=== PATIENT | female | born 1990 | race Caucasian/White ===

== ENCOUNTER 2016-10-20 11:00 | Outpatient (RCR) ==
--- NOTE | 2016-10-13 13:47 | RS.OPPTEV2 ---
Date of Note: 10/13/16 Visit #: 1 Date of Evaluation: 10/13/16 Surgery Performed?: Yes Procedure Performed: ACL reconstruction left knee with allograft Date of Procedure: 10/08/16 Treatment Diagnosis: Left knee stiffness, left knee pain, joint effusion, s/p ACL reconstruction History of Condition/Mechanism of Injury:: Patient reports injuring her left knee in June while playing volleyball. States she injured the ACL and MCL. Prior Level of Function.....Patient was independent with: ADL's, Self Care, Work /Vocation, Caregiving, Ambulation/Mobility, Community Integration/Access Functional Limitations: Sleep, Self Care, ADL's, Reaching, Pushing, Pulling, Lifting, Carrying, Sitting, Standing, Bending, Squatting, Ambulation, Community Access/Integration Current Subjective/complaints:: Patient reports not having a lot of pain. States she took tylenol last night, but that was mainly for a headache. She was on crutches for the first two days after surgery. She wears the locked knee brace continuously. She has been icing and elevating the Left LE. Reports sensation has fully returned from nerve block. 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 She is currently staying with her mother. States she has 15 steps to get to her apartment. Treatment Side (optional): Left Pain Assessment - Pain Description Pain Location: left knee pain Current Pain Intensity: 0/10 Functional Outcome Measure LE Functional Scale: 25 (25/80=68.75% impairment) - G Codes & Severity Modifier G Codes & Modifier: NA Source of G Code score: NA Observation - Observation Inspection: Patient presents with a locked knee brace in place to the left knee. Upon removal of the brace and IDALIA wrap, patient demostrates a couple of small incisions approximated with dermabond and a few incisions covered with steri-strips. Demonstrates slight bruising to the anterior aspect of the knee. Girth Measurement Lower: superior patella: left 36.5 cm, right 36.5 cm. mid patella: left 36 cm, right 35.5 cm. inferior patella: left 33 cm, right 32 cm. malleoli: left 22 cm, right 21 cm Gait - Gait Pattern Gait Comments: Patient ambulates without an assistive device with locked knee brace on the left LE. Demonstrates decreased stance on the left LE. - Left Knee ROM Left Knee Extension: -1 degree from full extension Left Knee Flexion: 82 (degrees AAROM) Knee ROM Limitations: Soft Tissue Tightness - Right Knee ROM Right Knee Extension: full extension Right Knee Flexion: 135 (degrees AROM) - Left Knee Strength Left Knee Extension: 4 Good Left Knee Flexion: 4 Good - Right Knee Strength Right Knee Extension: 5 Normal Right Knee Flexion: 5 Normal Sensation - Sensation Right Lower Extremity: Intact/Normal Left Lower Extremity: Intact/Normal Comments: Reports sensation intact throughout bilateral LE's. - Heat/Cryotherapy Treatment: Cryotherapy (X 10 mins following evaluation.) Interventions - Exercise/Activities/Manual Therapy Exercises/Activities: Patient assisted with left knee AROM below 90 degrees. Patient performed quad sets and SLR's with light assistance (without brace). Patient instructed in HEP of patella mobilization, quad sets, assisted SLR, and ankle pumps. Advised to continue icing the knee and to avoid twisting with the foot planted. Manual Therapy: NA - Charges Total Direct Minutes: 45 mins Total Treatment Time: 45 mins Procedures billed for this date of service:: EVAL Low complexity Assessment Assessment: Patient presents to therapy 5 days s/p left ACL reconstruction. She demonstrates limited AROM and muscle strength since surgery. Demonstrates .5 to 1 cm of swelling in the left knee compared to the right. She demonstrates good potential to return to her previous level of function with skilled therapy following Dr. Salmon's protocol. Patient Education: Education of diagnosis, Body/Joint mechanics, Home Exercise Program, Home Safety, Activity Modification, Education of Plan of Care Rehab Potential: Good Short Term Goals Goal #1: Left quad strength 4+/5. Goal to be met by: 10/27/16 Goal #2: Left knee AROM 0 to 90 degrees. Goal to be met by: 10/27/16 Goal #3: Pt independent and compliant with HEP. Goal to be met by: 10/27/16 Care Transitions Manager Goals Goal #1: Pt knows HEP and to continue HEP. Goal to be met by: 12/12/16 Goal #2: LE functional score improved to 60/80. Goal to be met by: 12/12/16 Goal #3: Pt able to perform all home and work activities without limitation. Goal to be met by: 10/21/17 Goal #4: Pt to amb. community distances & stairs w/o a gait deviation or difficulty. Goal to be met by: 12/12/16 Plan - Treatment to be Provided Procedures: Therapeutic Exercises, Therapeutic Activity, Patient Education Modalities: Electrical Stimulation, Cryotherapy - Treatment Plan Frequency: 3 X week Duration: 8 weeks ORDER # VISITS AND/OR THROUGH DATE: 12/12/16 - Treatment Code (1) Stiffness of left knee Comments: M25.662 (2) Knee effusion Qualifiers: Laterality: left Qualified Description: Effusion of left knee Qualifier Code(s): (M25.462) Effusion, left knee (3) S/P ACL reconstruction Comments: Z98.890
--- NOTE | 2016-10-14 14:46 | RS.OPPTDN ---
Subjective Date of Note: 10/14/16 Visit #: 2 Date of Evaluation: 10/13/16 Treatment Diagnosis: Left knee stiffness, left knee pain, joint effusion, s/p ACL reconstruction Current Subjective/complaints:: Patient says she feels she is doing quite well. She says she is performing HEP, using ice, and elevating. She is only taking Tylenol prn and last night is the last time she had taken it. (Appointment time 11:00). She c/o TAPIA at nighttime. She says she has a follow up on WednesdayOctober 16. Pain Assessment - Pain Description Pain Location: left knee pain Current Pain Intensity: 0/10 - Treatment Modality: Electrical Stim Unattended Parameters/Method Applied: 4 small pads hivolt crossed @ 125 pk volts to L knee following therex x 20 mins Patient Position: Supine - Heat/Cryotherapy Treatment: Cryotherapy Interventions - Exercise/Activities/Manual Therapy Exercises/Activities: Patient assisted with left knee AROM below 90 degrees. Patient performed quad sets and SLR's with light assistance (without brace), hip abd/add, heel slides to ~80 degrees. Ankle pumps in elevated position. Encouraged continued HEP and edema control/brace wear. Instructed in standing hip/knee all 4 directions with brace. Advised to continue icing the knee and to avoid twisting with the foot planted. Total minutes of Exercise: 20 Manual Therapy: NA - Charges Total Direct Minutes: 20 Total Treatment Time: 40 Procedures billed for this date of service:: cp, estim (un), ex Assessment: Patient demo independent amb with knee brace locked at 0 extension and IDALIA wrap. She is very consicentious of precautions and performing HEP/ cryotherapy at home. Instructed in proper stair sequence per mother's request as Loni wants to begin staying at her home which has 15 steps. Discouraged her from going home too soon to prevent fall. She maintained little to no pain with no pain meds taken prior to therapy session. She maintains light bruising and only slight swelling at the L knee joint. 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 Patient Education: Education of diagnosis, Body/Joint mechanics, Home Exercise Program, Home Safety, Activity Modification, Education of Plan of Care Short Term Goals Goal #1: Left quad strength 4+/5. Goal to be met by: 10/27/16 Goal #2: Left knee AROM 0 to 90 degrees. Goal to be met by: 10/27/16 Goal #3: Pt independent and compliant with HEP. Goal to be met by: 10/27/16 Prison Goals Goal #1: Pt knows HEP and to continue HEP. Goal to be met by: 12/12/16 Goal #2: LE functional score improved to 60/80. Goal to be met by: 12/12/16 Goal #3: Pt able to perform all home and work activities without limitation. Goal to be met by: 12/12/16 Goal #4: Pt to amb. community distances & stairs w/o a gait deviation or difficulty. Goal to be met by: 12/12/16 Plan PLAN OF CARE EXPIRES ON:: 12/12/16 ORDER # VISITS AND/OR THROUGH DATE: 12/12/16 PLAN: Progress Exercises (According to protocol)
--- NOTE | 2016-10-16 15:21 | RS.OPPTDN ---
Subjective Date of Note: 10/16/16 Visit #: 3 Date of Evaluation: 10/13/16 Treatment Diagnosis: Left knee stiffness, left knee pain, joint effusion, s/p ACL reconstruction Current Subjective/complaints:: Patient says she had a good report at her follow up this morn. She says that she may return to work next week using her long brace, but may wear her short brace at home. She says that she was able to go up/down her apartment steps this morning without difficulty. States she has tenderness to the medial aspect of the L knee, but continues to ice and take Tylenol prn. Pain Assessment - Pain Description Pain Location: left knee pain Current Pain Intensity: 0/10 - Treatment Modality: Electrical Stim Unattended Parameters/Method Applied: hivolt crossed 4 small pads @ 100 pk volts x 15 mins after therex Treatment Area: L knee Patient Position: Supine - Heat/Cryotherapy Treatment: Cryotherapy Interventions - Exercise/Activities/Manual Therapy Exercises/Activities: Patient assisted with left knee AROM below 90 degrees. Patient performed quad sets and SLR's independently (without brace), hip abd/add , heel slides to ~90 degrees. Ankle pumps in elevated position. Pillow squeezes, ankle DF with green tband. Began stationary bike altering the seat to obtain 90 degrees every 1 min x 5 mins. Modalities, then with brace on, standing heel raises and minisquats 2x5. Encouraged continued HEP and edema control/brace wear. Advised to continue icing the knee and to avoid twisting with the foot planted especially once returning to work. Total minutes of Exercise: 30 Manual Therapy: NA - Charges Total Direct Minutes: 30 Total Treatment Time: 45 Procedures billed for this date of service:: cp, estim (un), ex2 Assessment: Patient progressing well with improved quad control already during QS and SLR (now independently). She is able to wean from brace at home when she is able to show no limp (per patient). She was able to ascend/descend her 15 apartment steps today without difficulty. Minimal swelling and bruising remain. All therex jose very well. Patient Education: Education of diagnosis, Body/Joint mechanics, Home Exercise Program, Home Safety, Activity Modification, Education of Plan of Care Patient demonstrates compliance with HEP?: Yes Short Term Goals Goal #1: Left quad strength 4+/5. Goal to be met by: 10/27/16 Progress towards Goal:: Progressing Goal #2: Left knee AROM 0 to 90 degrees. Goal to be met by: 10/27/16 Progress towards Goal:: Met Goal #3: Pt independent and compliant with HEP. Goal to be met by: 10/27/16 Progress towards Goal:: Progressing Half-Way Goals Goal #1: Pt knows HEP and to continue HEP. Goal to be met by: 12/12/16 Progress towards goal: Progressing Goal #2: LE functional score improved to 60/80. Goal to be met by: 12/12/16 Goal #3: Pt able to perform all home and work activities without limitation. Goal to be met by: 12/12/16 Goal #4: Pt to amb. community distances & stairs w/o a gait deviation or difficulty. Goal to be met by: 12/12/16 Plan PLAN OF CARE EXPIRES ON:: 12/12/16 ORDER # VISITS AND/OR THROUGH DATE: 12/12/16 PLAN: Progress Exercises
--- NOTE | 2016-10-20 14:39 | RS.OPPTDN ---
Subjective Date of Note: 10/20/16 Visit #: 4 Date of Evaluation: 10/13/16 Treatment Diagnosis: Left knee stiffness, left knee pain, joint effusion, s/p ACL reconstruction Current Subjective/complaints:: Patient reports she is progressing well and is hoping to return to work. States she is consistently working on HEP. Reports mild tingling in the lower left leg and plantar surface of foot at times, which she feels is due to swelling. Pain Assessment - Pain Description Pain Location: left knee pain Current Pain Intensity: 0/10 - Treatment Modality: Electrical Stim Unattended Parameters/Method Applied: [id number] HVGC to 125p.v. with 4 large pads cross current to the posterior left leg above and below the popliteal surface with CP. Patient Position: Supine - Heat/Cryotherapy Treatment: Cryotherapy (to left knee joint with Estim ) Interventions - Exercise/Activities/Manual Therapy Exercises/Activities: Patient assisted with left knee AROM below 90 degrees. Patient performed quad sets and heel slides to 90 degrees. Added 1# cuff weight to SLR 3s/10reps. Began SLR/VMO no weight 3s/10reps, and sidelying hip abduction 3s/10reps. Pillow squeezes between knees and ball squeeze between feet. Resistive ankle DF with green tband. Stationary bike full revolutions, 7mins slow pace. Modalities, then with brace on, standing heel raises and minisquats. Limited forward weight-shift/modified lunge on left. Patient instructed to increase HEP to 4 times per day. Total minutes of Exercise: 25mins Manual Therapy: NA HOME EXERCISE PROGRAM: SLR, SLR/VMO, side-lying hip abd, mini-squats, toe-ups, and modified forward lunge/weight-shift - Charges Total Direct Minutes: 25mins Total Treatment Time: 50mins Procedures billed for this date of service:: CP, Estim unattended, EX2 Assessment: Patient able to advance exercise and appears motivated to progress. Patient Education: Body/Joint mechanics, Home Exercise Program Patient demonstrates compliance with HEP?: Yes Short Term Goals Goal #1: Left quad strength 4+/5. Goal to be met by: 10/27/16 Progress towards Goal:: Progressing Goal #2: Left knee AROM 0 to 90 degrees. Goal to be met by: 10/27/16 Progress towards Goal:: Met Goal #3: Pt independent and compliant with HEP. 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 Goal to be met by: 12/12/16 Progress towards goal: Progressing Goal #2: LE functional score improved to 60/80. Goal to be met by: 12/12/16 Goal #3: Pt able to perform all home and work activities without limitation. Goal to be met by: 12/12/16 Goal #4: Pt to amb. community distances & stairs w/o a gait deviation or difficulty. Goal to be met by: 12/12/16 Plan PLAN OF CARE EXPIRES ON:: 12/12/16 ORDER # VISITS AND/OR THROUGH DATE: 12/12/16 PLAN: Progress Exercises (Progress per protocol.)
== END 2016-10-22 ==
PROVIDERS: ATTEND Orthopaedic Surgery
DX: S83.512A Sprain of anterior cruciate ligament of left knee, initial encounter (principal)

== ENCOUNTER 2016-10-27 10:59 | Outpatient (RCR) ==
--- NOTE | 2016-10-27 12:07 | RS.OPPTDN ---
Subjective Date of Note: 10/27/16 Visit #: 5 Date of Evaluation: 10/13/16 Treatment Diagnosis: Left knee stiffness, left knee pain, joint effusion, s/p ACL reconstruction Current Subjective/complaints:: Patient says she does not believe swelling is much of a problem anymore. Reports she only has intermittent, slight residual swelling at the lateral/superior L knee. She says she uses ice consistently and has not had to resort to taking Tylenol "in some time." She is working on HEP and the only difficulty she is having is getting out of the shower, but she is able to flex the hip higher and compensate until she can perform increased knee flexion. She is ascending steps half the time "step- to" and half consecutively. Descending is consistently "step-to." Denies difficulty with job duties except with upper body compensations causing guarding and tightness. Pain Assessment - Pain Description Pain Location: left knee pain Pain Description: Decreased swelling to posterior knee and only slight presentation lat/super Current Pain Intensity: 0/10 Interventions - Exercise/Activities/Manual Therapy Exercises/Activities: Patient assisted with left knee AROM below 90 degrees. Patient performed quad sets and heel slides to 90 degrees. Continued with 1 1/2 # cuff weight to SLR 3s/10reps. Continued with SLR/VMO 1# 3s/10reps, and sidelying hip abduction and hip ext 3s/10reps. Pillow squeezes between knees and ball squeeze between feet. Resistive ankle DF with green tband 3/10. Stationary bike full revolutions, 7mins slow pace, With brace on: standing heel raises, hip abd, ham curls, modified partial lunge and minisquats. Total minutes of Exercise: 38 Manual Therapy: NA HOME EXERCISE PROGRAM: SLR, SLR/VMO, side-lying hip abd, mini-squats, toe-ups, and modified forward lunge/weight-shift - Charges Total Direct Minutes: 38 Total Treatment Time: 38 Procedures billed for this date of service:: ex3 Assessment: Patient presents with Independent amb with short brace to the L knee. She amb with mod pace with good heel strike and near equal WB compared to R. Patient has no pain and only slight holding of swelling to the L superior /lateral patella. Less tenderness to mod palpation and less tingling to the L LE as well. Patient very consistent with HEP at this point and relies on icing instead of Tylenol. Good quad control with SLR today and able to perform standing closed chain exercises with good control. HH balance required for support for modified lunge. Patient Education: Education of diagnosis, Body/Joint mechanics, Home Exercise Program, Home Safety, Activity Modification, Education of Plan of Care Patient demonstrates compliance with HEP?: Yes Short Term Goals Goal #1: Left quad strength 4+/5. Goal to be met by: 10/27/16 Progress towards Goal:: Progressing Goal #2: Left knee AROM 0 to 90 degrees. Goal to be met by: 10/27/16 Progress towards Goal:: Met Goal #3: Pt independent and compliant with HEP. Goal to be met by: 10/27/16 Progress towards Goal:: Met Casualty Underwriter Goals Goal #1: Pt knows HEP and to continue HEP. Goal to be met by: 12/12/16 Progress towards goal: Progressing Goal #2: LE functional score improved to 60/80. Goal to be met by: 12/12/16 Goal #3: Pt able to perform all home and work activities without limitation. Goal to be met by: 12/12/16 Goal #4: Pt to amb. community distances & stairs w/o a gait deviation or difficulty. Goal to be met by: 12/12/16 Plan PLAN OF CARE EXPIRES ON:: 12/12/16 ORDER # VISITS AND/OR THROUGH DATE: 12/12/16 PLAN: Progress Exercises
== END 2016-11-21 ==
PROVIDERS: ATTEND Orthopaedic Surgery
DX: S83.512A Sprain of anterior cruciate ligament of left knee, initial encounter (principal)

== ENCOUNTER 2018-06-15 07:41 | Outpatient (CLI) | END 2018-06-15 07:42 | disposition home or self-care (01) | LOC: LAB 07:41 | PROVIDERS: ATTEND Family Medicine | DX: Z00.00 Encounter for general adult medical examination without abnormal findings (principal) | CPT/HCPCS: 36415; 80053; 80061; 85025 ==